=== PATIENT | female | born 2000 | race Hispanic/Latino ===

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

== ENCOUNTER 2019-03-04 20:19 | Emergency (ER) | payer BC | END 2019-03-04 21:37 | disposition home or self-care (01) | LOC: EDH 20:19 | DX: S93.431A Sprain of tibiofibular ligament of right ankle, initial encounter (principal); Z98.890 Other specified postprocedural states; X50.1XXA Overexertion from prolonged static or awkward postures, initial encounter; Y93.89 Activity, other specified; Y92.89 Other specified places as the place of occurrence of the external cause; Y99.8 Other external cause status | CPT/HCPCS: 73610 ==